=== PATIENT | female | born 1960 | race African-American/Black ===

== ENCOUNTER 2017-02-03 12:13 | Emergency (ER) | payer MEDICAID ==
[~2017-02-03] VITALS: Ht 180.3 cm; Wt 120.2 kg
[~2017-02-03 12:13] MED LIST: DIFLUCAN150 MG PO; FLAGYL500 MG ORAL; GUAIFENESIN-CO118 M1 ORAL; HYDROCODON-ACE1 EA15 ORAL; IBUPROFEN600 MG ORAL; IBUPROFEN600 MG PO; LISINOPRIL20 MG ORAL; NAPROSYN500 M1 ORAL; NORCO 5-325 TA1 EACH ORAL; PREDNISONE20 M1 PO; ZITHROMAX250 MG ORAL
[2017-02-03 12:50] VITALS: BP 137/92
--- NOTE | 2017-02-03 12:59 | Emergency Room Report ---
History of Present Illness General Chief Complaint: Upper Respiratory Illness Source: Patient Present Illness HPI 56 y/o female c/o URI sxs x 8 days. States she has nasal congestion with post nasal drip that is causing cough and chest congestion. States she started having chest pressure / chest wall pain with coughing as well as left shoulder tenderness that is worse with palpation and movement of the left arm and with tenderness pressing on chest wall. Has hx of asthma and states asthma has improved and currently has no chest pressure. States she took flonase w/o improvement of sxs. Denies any active REINOSO, SOB, chest pressure, f/c/n/v/d, abd pain, nausea, neck pain, PRAKASH, blurred vision, jaw pain, back pain, numbness, paralysis or loss of ROM. Allergies: Coded Allergies: No Known Allergies (Unverified , 10/17/13) Patient History Past Medical History: see triage record Past Surgical History: none Pertinent Family History: none Now: No Reviewed Nursing Documentation: PMH: Agreed, PSxH: Agreed Nursing Documentation-PMH Past Medical History: No History, Except For Hx Hypertension: Yes Hx Asthma: Yes Hx COPD: Yes - asthma Review of Systems All Other Systems: negative except mentioned in HPI Physical Exam Vital Signs Date Time Temp Pulse Resp B/P Pulse Ox O2 Delivery O2 Flow Rate FiO2 02/03/17 12:24 98.2 62 16 137/92 95 Room Air Sp02 EP Interpretation: reviewed, normal General Appearance: no apparent distress, alert, GCS 15, non-toxic Head: normocephalic, atraumatic Eyes: bilateral eye PERRL, bilateral eye normal inspection ENT: hearing grossly normal, normal pharynx, no angioedema, normal voice, nasal congestion, other - TM red and bulging Neck: full range of motion, supple/symm/no masses Respiratory: lungs clear, normal breath sounds, no respiratory distress, speaking full sentences, other - TTP left pectoral region and left anterior shoulder Cardiovascular #1: regular rate, rhythm, no edema Musculoskeletal: back normal, gait/station normal, normal range of motion, other - +crossover, neg neers, +empty can, tender Neurologic: alert, oriented x3, responsive, motor strength/tone normal, sensory intact, speech normal Psychiatric: judgement/insight normal, memory normal, mood/affect normal, no suicidal/homicidal ideation Skin: normal color, no rash, warm/dry, well hydrated Lymphatic: no adenopathy Medical Decision Making PA Attestation Dr. Mccord is my supervising physician with whom patient management has been discussed with. Diagnostic Impression: Primary Impression: URI with cough and congestion Additional Impressions: Asthma Qualified Codes: J45.21 - Mild intermittent asthma with (acute) exacerbation Otitis media Qualified Codes: H65.113 - Acute and subacute allergic otitis media (mucoid) ( sanguinous) (serous), bilateral Acute chest wall pain Muscle spasm of left shoulder ER Course Pt. presents to the ED c/o of cough and congestion Ddx considered but are not limited to bronchitis, pneumonia, viral upper respiratory tract infection Vital signs: are WNL, pt. is afebrile H&PE are most consistent with AOM, left shoulder strain, chest wall muscle strain ORDERS: EKG ED INTERVENTIONS: None required at this time. DISCHARGE: At this time pt. is stable for d/c to home. Will provide printed patient care instructions, and any necessary prescriptions. Care plan and follow up instructions have been discussed with the patient prior to discharge. EKG Diagnostic Results Rate: normal Rhythm: NSR ST Segments: no acute changes Last Vital Signs Date Time Temp Pulse Resp B/P Pulse Ox O2 Delivery O2 Flow Rate FiO2 02/03/17 12:50 62 16 Room Air 02/03/17 12:50 98.2 137/92 95 Disposition: HOME, SELF-CARE Condition: Stable Scripts Ibuprofen* (MOTRIN*) 600 Mg Tablet 600 MG ORAL Q6H Y for For Pain, #30 TAB Prov: SABRY,TAMEEM P.A. 02/03/17 Methocarbamol* (ROBAXIN-750*) 750 Mg Tablet 750 MG PO TID, #21 TAB 0 Refills Prov: SABRY,TAMEEM P.A. 02/03/17 D-Methorphan Hb/P-Epd Hcl/Bpm (BROMFED DM COUGH SYRUP) 118 Ml Syrup 5 ML PO TID, #120 ML Prov: SABRY,TAMEEM P.A. 02/03/17 Azithromycin* (ZITHROMAX*) 250 Mg Tablet 250 MG ORAL DAILY for 5 Days, #1 PACK 0 Refills Take two tables once daily for 1 day, then one tablet once daily for 4 days. Prov: SABRY,TAMEEM P.A. 6/4/17 Patient Instructions: Cough, Adult Additional Instructions: Take medication as directed. Drink plenty of fluids which include Gatorade and water. Get plenty of rest. Avoid taking medications on an empty stomach. If you have cough avoid dairy and cold beverages. If you have a fever, headache or body aches please take [id number] tylenol/motrin/advil unless a prescription for these symptoms have been given. If your symptoms are worsening or you have shortness or breath, severe headaches or chest pain, please call 911 or go to the ER. RYANNE RODRIGUEZ Feb 03, 2017 12:59
[2017-02-03] MEDS ORDERED: BROMFED DM COU118 ML PO (13:22)
[2017-02-03] MEDS ORDERED: ZITHROMAX250 MG ORAL (13:22)
[2017-02-03] MEDS ORDERED: ROBAXIN-750750 MG PO (13:26)
[2017-02-03] MEDS ORDERED: IBUPROFEN600 MG ORAL (13:26)
[2017-02-03 13:38] VITALS: BP 137/92
== END 2017-02-03 13:40 | disposition home or self-care (01) ==
LOC: EMR 13:20
DX: R06.9 Unspecified abnormalities of breathing (principal); R05 Cough; R09.81 Nasal congestion; J45.21 Mild intermittent asthma with (acute) exacerbation; H65.113 Acute and subacute allergic otitis media (mucoid) (sanguinous) (serous), bilateral; R07.9 Chest pain, unspecified; M62.838 Other muscle spasm; I10 Essential (primary) hypertension; J44.9 Chronic obstructive pulmonary disease, unspecified
CPT/HCPCS: 93005; 99284

== ENCOUNTER 2017-02-21 14:40 | Emergency (ER) | payer MEDICAID ==
[~2017-02-21] VITALS: Ht 180.3 cm; Wt 117.9 kg
[~2017-02-21 14:40] MED LIST changes: +BROMFED DM COU118 ML PO; +ROBAXIN-750750 MG PO
[2017-02-21 15:17] VITALS: BP 159/91
[2017-02-21] MEDS ORDERED: Ketorolac 60mg Inj IM ONE (15:30)
--- NOTE | 2017-02-21 15:34 | Emergency Room Report ---
History of Present Illness General Chief Complaint: Pain Source: Patient Present Illness HPI 57-year-old female presents emergency department complaining of 7/10 in severity left shoulder pain that she describes as aching and dull x2 months. Patient denies appreciable trauma or fall. Patient states pain is exacerbated upon raising her arm above her head or to brush her hair. Patient denies erythema, increased temperature palpation denies numbness, tingling or changes to sensation. Patient also reports swelling and mild tenderness to the area behind the left ear. Patient states she has had small palpable mass for years. She also reports elevated blood pressure recently due to stress, consistent pain in the shoulder and having to take care of her mother. Denies numbness tingling or loss of sensation or gross motor movements of the extremities, incontinence of bowel or bladder. Denies CP, Palpitations, LOC, AMS, dizziness, Changes in Vision, Sensation, paresthesias, or a sudden severe headache. Allergies: Coded Allergies: No Known Allergies (Unverified , 10/17/13) Patient History Past Medical History: see triage record Past Surgical History: none Pertinent Family History: none Now: No Immunizations: UTD Reviewed Nursing Documentation: PMH: Agreed, PSxH: Agreed Nursing Documentation-PMH Hx Hypertension: Yes Hx Asthma: Yes Hx COPD: Yes - asthma Review of Systems All Other Systems: negative except mentioned in HPI Physical Exam Vital Signs Date Time Temp Pulse Resp B/P Pulse Ox O2 Delivery O2 Flow Rate FiO2 02/21/17 14:54 98.2 61 15 159/91 97 Room Air Sp02 EP Interpretation: reviewed, abnormal - elevated BP General Appearance: no apparent distress, alert, GCS 15, non-toxic Head: normocephalic, atraumatic Eyes: bilateral eye PERRL, bilateral eye normal inspection ENT: hearing grossly normal, normal pharynx, no angioedema, normal voice Neck: full range of motion, supple/symm/no masses Respiratory: lungs clear, normal breath sounds, speaking full sentences Cardiovascular #1: regular rate, rhythm, no edema, normal capillary refill Musculoskeletal: back normal, gait/station normal, normal range of motion, tender - no appreciable TTP, mild discomfort to the left a/c area, FROM of the shoulder with no clicking or crepitus, negative lift off test, 5+ muscular strength. Neurologic: alert, oriented x3, responsive, motor strength/tone normal, sensory intact, speech normal Psychiatric: judgement/insight normal, memory normal, mood/affect normal Skin: normal color, no rash, warm/dry, well hydrated, other - non fluctuant freely mobile well circumscribed superficial dermal mass just posterior to the left ear on the scalp. Medical Decision Making PA Attestation Dr. Levin is my supervising Physician whom patient management has been discussed with. Diagnostic Impression: Primary Impression: PAIN IN LEFT SHOULDER Additional Impression: SEBACEOUS CYST ER Course 57-year-old female presents emergency department complaining of 7/10 in severity left shoulder pain that she describes as aching and dull x2 months. Patient denies appreciable trauma or fall. Patient states pain is exacerbated upon raising her arm above her head or to brush her hair. Patient denies erythema, increased temperature palpation denies numbness, tingling or changes to sensation. Patient also reports swelling and mild tenderness to the area behind the left ear. Patient states she has had small palpable mass for years. She also reports elevated blood pressure recently due to stress, consistent pain in the shoulder and having to take care of her mother. Denies numbness tingling or loss of sensation or gross motor movements of the extremities, incontinence of bowel or bladder. Denies CP, Palpitations, LOC, AMS, dizziness, Changes in Vision, Sensation, paresthesias, or a sudden severe headache. Ddx considered but are not limited to Fracture, dislocation, contusion, Sprain/ Strain/Spasm,sebaceous cyst, abscess. Vital signs: are WNL, pt. is afebrile H&PE are most consistent with Arthritic pain or overuse syndrome will do imaging to evaluate shoulder, epidermal cyst- non fluctuant freely mobile well circumscribed superficial dermal mass. ORDERS: - X-ray Left shoulder 2 views - a/c joint arthritis noted, negative for fx, Dislocation, or significant soft tissue injury, per preliminary read in ED by Dr. Levin ED INTERVENTIONS: - Toradol IM -PT was given a copy of her x-rays. - d/w pt. to follow up for pcp or [employer] for removal of cyst. Follow up with PCP for evaluation of elevated BP. DISCHARGE: At this time pt. is stable for d/c to home. Will provide printed patient care instructions, and any necessary prescriptions. Care plan and follow up instructions have been discussed with the patient prior to discharge. Last Vital Signs Date Time Temp Pulse Resp B/P Pulse Ox O2 Delivery O2 Flow Rate FiO2 02/21/17 15:17 98.2 15 159/91 97 Room Air 02/21/17 14:54 61 Disposition: HOME, SELF-CARE Condition: Stable Scripts Ibuprofen* (MOTRIN*) 600 Mg Tablet 600 MG ORAL THREE TIMES A DAY, #30 TAB 0 Refills Prov: Katherine Salas 02/21/17 Patient Instructions: Epidermal Cyst, Ippi-va-Fupu, Shoulder Pain Additional Instructions: Take medications as directed. Follow up with PCP in 3-5 days, if symptoms persist after conservative treatment MRI is recommended. Return sooner to ED if new symptoms occur, or current symptoms become worse. - Please note that this Emergency Department Report was dictated using MyTinksstemming machine operator technology software, occasionally this can lead to erroneous entry secondary to interpretation by the dictation equipment. Katherine Salas Feb 21, 2017 15:34
--- NOTE | 2017-02-21 16:24 | Diagnostic Imaging Report ---
Indications: Left shoulder pain, denies trauma Technique: 3 views of the left shoulder Findings: Comparison: None No fracture, dislocation, lytic destruction, periosteal reaction, surrounding soft tissue swelling, or other acute change is demonstrated. No deformity, alignment abnormality, arthritic change, soft tissue calcification, or other chronic change is demonstrated. IMPRESSION: Negative left shoulder series.
[2017-02-21] MEDS ORDERED: IBUPROFEN600 MG ORAL (16:32)
[2017-02-21 16:40] VITALS: BP 157/94
== END 2017-02-21 16:40 | disposition home or self-care (01) ==
LOC: EMR 15:55
DX: M25.512 Pain in left shoulder (principal); L72.3 Sebaceous cyst; J44.9 Chronic obstructive pulmonary disease, unspecified; I10 Essential (primary) hypertension
CPT/HCPCS: 96372; 99283

== ENCOUNTER 2017-06-02 17:21 | Emergency (ER) | payer MEDICAID ==
[~2017-06-02] VITALS: Ht 180.3 cm; Wt 115.7 kg
[2017-06-02 17:40] VITALS: BP 157/93
--- NOTE | 2017-06-02 18:51 | Emergency Room Report ---
History of Present Illness General Chief Complaint: Female Urogenital Problems Source: Patient Present Illness HPI 57-year-old female presents to emergency department complaining of dysuria and vaginal itching with swelling and sensitivity x2 days. Patient denies appreciable discharge she states she tried ofat-mmn-sytyxmb yeast cream and believes that this made her symptoms worse. Patient denies malodor. Patient denies recent unprotected intercourse with a new partner. She denies fevers, chills, vaginal bleeding, swollen tender lymph nodes, joint pain or abdominal pain. Patient denies nausea vomiting. She denies hematuria or frequency. She reports that she is in the beginning of menopause. Allergies: Coded Allergies: No Known Allergies (Unverified , 10/17/13) Patient History Past Medical History: see triage record Past Surgical History: none Pertinent Family History: none Last Menstrual Period: irreg Now: No Immunizations: UTD Reviewed Nursing Documentation: PMH: Agreed, PSxH: Agreed Nursing Documentation-PMH Hx Hypertension: Yes Hx Asthma: Yes Hx COPD: Yes Review of Systems All Other Systems: negative except mentioned in HPI Physical Exam Vital Signs Date Time Temp Pulse Resp B/P (MAP) Pulse Ox O2 Delivery O2 Flow Rate FiO2 06/02/17 17:31 97.9 66 20 157/93 97 Room Air Sp02 EP Interpretation: reviewed, normal General Appearance: no apparent distress, alert, GCS 15, non-toxic Head: normocephalic, atraumatic Eyes: bilateral eye normal inspection, bilateral eye PERRL ENT: hearing grossly normal, normal voice Neck: full range of motion Respiratory: lungs clear, normal breath sounds, speaking full sentences Cardiovascular #1: regular rate, rhythm Gastrointestinal: normal bowel sounds, non tender, soft, no guarding, no rebound Rectal: deferred Genitourinary: normal inspection, no CVA tenderness, adnexa normal, bladder normal, cervix normal, other - no CMT, scant Thick white D/C noted Musculoskeletal: back normal, gait/station normal, normal range of motion, non- tender, no calf tenderness Neurologic: alert, oriented x3, responsive, motor strength/tone normal, sensory intact, speech normal Psychiatric: judgement/insight normal, memory normal, mood/affect normal Skin: normal color, no rash, warm/dry, well hydrated Lymphatic: no adenopathy Medical Decision Making PA Attestation Dr. Pagan is my supervising Physician whom patient management has been discussed with. Diagnostic Impression: Primary Impression: Vaginitis Qualified Codes: N76.0 - Acute vaginitis Additional Impression: UTI (urinary tract infection) Qualified Codes: N30.01 - Acute cystitis with hematuria ER Course 57-year-old female presents to emergency department complaining of dysuria and vaginal itching with swelling and sensitivity x2 days. Patient denies appreciable discharge she states she tried zirw-usu-epwnpdq yeast cream and believes that this made her symptoms worse. Patient denies malodor. Patient denies recent unprotected intercourse with a new partner. She denies fevers, chills, vaginal bleeding, swollen tender lymph nodes, joint pain or abdominal pain. Patient denies nausea vomiting. She denies hematuria or frequency. She reports that she is in the beginning of menopause. Ddx considered but are not limited to UTi , Pyelo, STI, Stone, Cystitis, vaginal laceration, vaginitis. Vital signs: are WNL, pt. is afebrile H& PE are most consistent with: Vaginitis will do wet mount to differentiate between atrophic, yeast, or BV ORDERS: - UA labs are attached - WBC's, leuks, and bacteria elevated, consistent with UTI. -Wet Mount Prep: No Clue cells, no trich, bacteria, no yeast. ED INTERVENTIONS: -Diflucan PO DISCHARGE: At this time pt. is stable for d/c to home. Will provide printed patient care instructions, and any necessary prescriptions. Care plan and follow up instructions have been discussed with the patient prior to discharge. Labs Test 06/02/17 20:00 Urine Color Ibeth Urine Appearance Slightly cloudy Urine pH 5 (4.5-8.0) Urine Specific [place] 1.025 (1.005-1.035) Urine Protein 1+ (NEGATIVE) Urine Glucose (UA) Negative (NEGATIVE) Urine Ketones 1+ (NEGATIVE) Urine Occult Blood 1+ (NEGATIVE) Urine Nitrite Negative (NEGATIVE) Urine Bilirubin Negative (NEGATIVE) Urine Ictotest Negative Urine Urobilinogen Normal MG/DL (0.0-1.0) Urine Leukocyte Esterase 3+ (NEGATIVE) Urine RBC 0-2 /HPF (0 - 2) Urine WBC 15-20 /HPF (0 - 2) Urine Squamous Epithelial Cells Many /LPF (NONE/OCC) Urine Bacteria Moderate /HPF (NONE) Urine Mucus Few /LPF (NONE/OCC) Last Vital Signs Date Time Temp Pulse Resp B/P (MAP) Pulse Ox O2 Delivery O2 Flow Rate FiO2 06/02/17 17:31 97.9 66 20 157/93 97 Room Air Disposition: HOME, SELF-CARE Condition: Stable Scripts Nitrofurantoin Monohyd/M-Cryst* (MACROBID 100 MG*) 100 Mg Capsule 100 MG ORAL EVERY 12 HOURS for 5 Days, #10 CAP Prov: Katherine Salas 06/02/17 Fluconazole (FLUCONAZOLE) 100 Mg Tablet 100 MG ORAL DAILY for 3 Days, #3 TAB 0 Refills Prov: Katherine Salas 06/02/17 Referrals: [facility] (PCP) Patient Instructions: Vaginitis Additional Instructions: Take medications as directed. Follow up with a Primary Care Provider in 3-5 days, even if your symptoms have resolved. --Please review list of primary care clinics, if you do not already have a primary care provider Return sooner to ED if new symptoms occur, or current symptoms become worse. - Please note that this Emergency Department Report was dictated using echoechofarm management teacher technology software, occasionally this can lead to erroneous entry secondary to interpretation by the dictation equipment. Katherine Salas Jun 02, 2017 18:51
[2017-06-02] MEDS ORDERED: Fluconazole 100mg tab ORAL ONE (19:45)
[2017-06-02] MEDS ORDERED: FLUCONAZOLE100 MG ORAL (19:59)
[2017-06-02 20:09] LABS: APPEARANCE,URINE SLIGHTLY CLOUDY; KETONES,URINE 1+ (NEGATIVE); LEUKOCYTE ESTERASE ,URINE 3+ (NEGATIVE); NITRITE,URINE NEGATIVE (NEGATIVE); PH,URINE 5 (4.5-8.0); PROTEIN,URINE 1+ (NEGATIVE); UROBILINOGEN,URINE NORMAL MG/DL (0.0-1.0)
[2017-06-02 20:17] LABS: BACTERIA,URINE MODERATE /HPF; ICTOTEST NEGATIVE; MUCUS,URINE FEW /LPF (NONE/OCC); RBC,URINE 0-2 /HPF (0 - 2); SQUAMOUS EPITHELIAL CELL,UR MANY /LPF (NONE/OCC); WBC,URINE 15-20 /HPF (0 - 2)
[2017-06-02 20:21] VITALS: BP 157/93
[2017-06-02] MEDS ORDERED: NITROFURANTOIN100 M2 ORAL (20:25)
== END 2017-06-02 20:21 | disposition home or self-care (01) ==
LOC: EMR 18:19
DX: N76.0 Acute vaginitis (principal); N39.0 Urinary tract infection, site not specified; J44.9 Chronic obstructive pulmonary disease, unspecified; I10 Essential (primary) hypertension
CPT/HCPCS: 81003; 87086; 87210; 99284

== ENCOUNTER 2017-08-18 15:16 | Emergency (ER) | payer MEDICAID ==
[~2017-08-18] VITALS: Ht 180.3 cm; Wt 120.2 kg
[~2017-08-18 15:16] MED LIST changes: +FLUCONAZOLE100 MG ORAL; +NITROFURANTOIN100 M2 ORAL
[2017-08-18] MEDS ORDERED: PROMETHAZINE-D118 ML ORAL (17:00)
[2017-08-18] MEDS ORDERED: PROAIR HFA8.5 GM INH (17:00)
[2017-08-18] MEDS ORDERED: ZITHROMAX250 MG ORAL (17:00)
[2017-08-18 17:07] VITALS: BP 158/82
[2017-08-18 17:20] VITALS: BP 158/82
--- NOTE | 2017-08-18 21:17 | Emergency Room Report ---
History of Present Illness General Chief Complaint: Upper Respiratory Illness Source: Patient (SD MATTHEWS) Present Illness HPI The patient is a 57-year-old female presenting for cough, subjective fevers, chills for the past 3 days. She states that symptoms have been worsening. She states that she has had pneumonia in the past and this feels the same. Pain is an 8/10 dull ache to the mid chest and occurs with coughing only. She denies any other symptoms including shortness of breath, rash, dizziness, blurred vision, sore throat (SD MATTHEWS P.A.) Allergies: Coded Allergies: No Known Allergies (Unverified , 10/17/13) Patient History Past Medical History: see triage record Reviewed Nursing Documentation: PMH: Agreed, PSxH: Agreed (SD [email or web address]) Nursing Documentation-PMH Hx Hypertension: Yes Hx Asthma: Yes Hx COPD: Yes (SD [email or web address]) Review of Systems All Other Systems: negative except mentioned in HPI (SD MATTHEWS P.ARosario) Physical Exam Vital Signs Date Time Temp Pulse Resp B/P (MAP) Pulse Ox O2 Delivery O2 Flow Rate FiO2 08/18/17 15:50 98.2 81 16 154/88 97 Room Air Sp02 EP Interpretation: reviewed, normal General Appearance: no apparent distress, alert, GCS 15, non-toxic Head: normocephalic, atraumatic Eyes: bilateral eye normal inspection, bilateral eye PERRL ENT: hearing grossly normal, normal pharynx, no angioedema, normal voice, uvula midline Neck: full range of motion, supple/symm/no masses Respiratory: chest non-tender, normal breath sounds, speaking full sentences, wheezing - bilat lower lobes Cardiovascular #1: regular rate, rhythm, no edema Musculoskeletal: back normal, gait/station normal, normal range of motion, non- tender Neurologic: alert, oriented x3, responsive, motor strength/tone normal, sensory intact, speech normal Psychiatric: judgement/insight normal, memory normal, mood/affect normal, no suicidal/homicidal ideation Skin: normal color, no rash, warm/dry, well hydrated Lymphatic: no adenopathy (SD [email or web address]) Medical Decision Making PA Attestation Dr. Pagan is my supervising physician. Patient management was discussed with my supervising physician (SD MATTHEWS) Diagnostic Impression: Primary Impression: Atypical pneumonia ER Course The patient is a 57-year-old female presenting for cough, subjective fevers, chills for the past 3 days. Differential diagnosis include but not limited to pharyngitis, sinusitis, AOM, bronchitis, PNA PE: afebrile. No tachypnea. No apparent distress. No TTP over maxillary or frontal sinuses. Lungs: bilat wheezing. No accessory muscle use. No resp distress Heart: RRR, no abnormal heart sounds Ears: external auditory canal clear. Non erythematous. Bilat TM intact. Cone of light present bilat. No bulging of TM. No serous fluid seen. no nasal D/C Nor cervical lymphad No tonsillar exudate. Uvula midline.Oropharynx non erythematous CXR shows no effusion or acute findings The patient will be discharged home with a prescription for abx, albuterol. and cough medication ER precautions given (SD MATTHEWS) ER Course I have reviewed the PA's interpretation of Xray results and agree with findings. (Leola Pagan M.D.) Chest X-Ray Diagnostic Results Chest X-Ray Diagnostic Results : Chest X-Ray Ordered: Yes # of Views/Limited/Complete: 1 View Indication: Other - cough PA Xray: Interpretation reviewed, by supervising MD, and agrees with findings. Interpretation: no consolidation, no effusion, no pneumothorax, no acute cardiopulmonary disease Impression: No acute disease Electronically Signed by: Sd Matthews PA-C (SD MATTHEWS PRosarioARosario) Last Vital Signs Date Time Temp Pulse Resp B/P (MAP) Pulse Ox O2 Delivery O2 Flow Rate FiO2 08/18/17 17:20 71 20 158/82 97 Room Air 08/18/17 17:07 97.8 Status: improved (SD MATTHEWS) Disposition: HOME, SELF-CARE Condition: Improved Scripts D-Methorphan Hb/Prometh Hcl* (PROMETHAZINE-DM SYRUP*) 118 Ml Syrup 5 ML ORAL Q6H Y for For Cough, #118 ML 0 Refills Prov: SD MATTHEWS 08/18/17 Albuterol Sulfate* (PROAIR HFA*) 8.5 Gm Hfa.aer.ad 2 PUFFS INH Q6H, #8.5 GM 0 Refills Prov: SD MATTHEWS 08/18/17 Azithromycin* (ZITHROMAX*) 250 Mg Tablet 250 MG ORAL DAILY, #6 TAB 0 Refills Take two tables once daily for 1 day, then one tablet once daily for 4 days. Prov: SD MATTHEWS 08/18/17 Referrals: [facility] (PCP) Patient Instructions: Cough, Adult Additional Instructions: I discussed my findings with the patient. All questions and concerns have been answered. Treatment and medication compliance have been addressed. I advised the patient that they need to follow up with PMD in 3-5 days. Return to ED if symptoms worsen, new symptoms arise, or if needed for any reason. Patient verbalized understanding of discharge instructions. SD MATTHEWS Aug 18, 2017 21:17 Leola Pagan M.D. Aug 19, 2017 13:54
--- NOTE | 2017-08-19 12:58 | Diagnostic Imaging Report ---
Indication: Cough Comparison: 12/21/2013 A single view chest radiograph was obtained. Findings: Cardiomediastinal appearance is within normal limits for age. Pulmonary vascularity is appropriate. The diaphragmatic contour is smooth and costophrenic angles are sharp. No pleural effusions are identified. The bones are unremarkable. Impression: No acute findings
== END 2017-08-18 17:20 | disposition home or self-care (01) ==
LOC: EMR 15:45
DX: J18.9 Pneumonia, unspecified organism (principal); I10 Essential (primary) hypertension; J44.9 Chronic obstructive pulmonary disease, unspecified
CPT/HCPCS: 71010; 99284

== ENCOUNTER 2017-10-17 17:31 | Emergency (ER) | payer MEDICAID ==
[~2017-10-17] VITALS: Ht 180.3 cm; Wt 113.4 kg
[~2017-10-17 17:31] MED LIST changes: +PROAIR HFA8.5 GM INH; +PROMETHAZINE-D118 ML ORAL
[2017-10-17 18:32] LABS: APPEARANCE,URINE CLEAR; BILIRUBIN, URINE NEGATIVE (NEGATIVE); GLUCOSE, URINE (UA) NEGATIVE (NEGATIVE); KETONES,URINE NEGATIVE (NEGATIVE); LEUKOCYTE ESTERASE ,URINE 1+ (NEGATIVE); NITRITE,URINE NEGATIVE (NEGATIVE); PH,URINE 5 (4.5-8.0); PROTEIN,URINE NEGATIVE (NEGATIVE); UROBILINOGEN,URINE NORMAL MG/DL (0.0-1.0)
[2017-10-17 18:33] LABS: COLOR,URINE YELLOW
[2017-10-17] MEDS ORDERED: Ketorolac 60mg Inj IM ONE (18:45)
--- NOTE | 2017-10-17 19:08 | Emergency Room Report ---
History of Present Illness General Chief Complaint: Back Pain-No Injury Source: Patient Present Illness HPI 57-year-old female presents to the emergency department complaining of 10 out of 10 in severity low back pain primarily on the right side x2 days. Patient reports difficulty finding comfortable position at night pain is increased upon movement or getting up from bed. Patient states that she bought a new bed and mattress and was having to move those around the room and states that she may have pulled something. Describes pain as constant and dull with intermittent exacerbations with certain movements. Patient also reports increase urinary frequency as she was having to get up multiple times but tonight to go to the bathroom. Patient denies dysuria, hematuria, fevers, chills. Patient denies history of back pain or recent trauma or fall. Denies night sweats, hx of cx or recent spinal procedures. Denies numbness tingling or loss of sensation or gross motor movements of the extremities, incontinence of bowel or bladder. Denies CP, Palpitations, LOC, AMS, dizziness, Changes in Vision, Sensation, paresthesias, or a sudden severe headache. Allergies: Coded Allergies: No Known Allergies (Unverified , 10/17/13) Patient History Past Medical History: see triage record Past Surgical History: none Pertinent Family History: none Now: No Reviewed Nursing Documentation: PMH: Agreed, PSxH: Agreed Nursing Documentation-PMH Past Medical History: No History, Except For Hx Cardiac Problems: No Hx Hypertension: Yes Hx Pacemaker: No Hx Asthma: Yes Hx COPD: No Hx Diabetes: No Hx Cancer: No Hx Gastrointestinal Problems: No Hx Dialysis: No History Of Psychiatric Problem: No Hx Neurological Problems: No Hx Cerebrovascular Accident: No Hx Seizures: No Review of Systems All Other Systems: negative except mentioned in HPI Physical Exam Vital Signs Date Time Temp Pulse Resp B/P (MAP) Pulse Ox O2 Delivery O2 Flow Rate FiO2 10/17/17 17:43 98.1 65 14 174/72 99 Room Air 98.1 Sp02 EP Interpretation: reviewed, normal General Appearance: no apparent distress, alert, GCS 15, non-toxic Head: normocephalic, atraumatic Eyes: bilateral eye normal inspection, bilateral eye PERRL ENT: hearing grossly normal, normal voice Neck: full range of motion Respiratory: lungs clear, normal breath sounds, speaking full sentences Cardiovascular #1: regular rate, rhythm Gastrointestinal: non tender, soft, no guarding Rectal: deferred Genitourinary: normal inspection, no CVA tenderness Musculoskeletal: back normal, gait/station normal, normal range of motion, tender - Right lumbar paraspinal and upper gluteal ttp, mild left paraspinal lumbar ttp, FROM, no midline ttp, no obvious deformities. Neurologic: alert, oriented x3, responsive, motor strength/tone normal, sensory intact, normal gait, speech normal, grossly normal Psychiatric: judgement/insight normal Skin: normal color, no rash, warm/dry, well hydrated Medical Decision Making PA Attestation Dr. Pagan is my supervising Physician whom patient management has been discussed with. Diagnostic Impression: Primary Impression: Muscle spasm of back Additional Impression: Lumbosacral strain Qualified Codes: S39.012A - Strain of muscle, fascia and tendon of lower back , initial encounter ER Course 57-year-old female presents to the emergency department complaining of 10 out of 10 in severity low back pain primarily on the right side x2 days. Patient reports difficulty finding comfortable position at night pain is increased upon movement or getting up from bed. Patient states that she bought a new bed and mattress and was having to move those around the room and states that she may have pulled something. Describes pain as constant and dull with intermittent exacerbations with certain movements. Patient also reports increase urinary frequency as she was having to get up multiple times but tonight to go to the bathroom. Patient denies dysuria, hematuria, fevers, chills. Patient denies history of back pain or recent trauma or fall. Denies night sweats, hx of cx or recent spinal procedures. Denies numbness tingling or loss of sensation or gross motor movements of the extremities, incontinence of bowel or bladder. Denies CP, Palpitations, LOC, AMS, dizziness, Changes in Vision, Sensation, paresthesias, or a sudden severe headache. Ddx considered but are not limited to Fracture, dislocation, contusion, epidural abscess, Sprain/Strain/Spasm, UTI , pyelo, stone just to name a few. Vital signs: are WNL, pt. is afebrile H&PE are most consistent with muscle spasm, ORDERS: -UA: Unremarkable-- Most indicative of contamination: presence of equal amounts of bacteria and squamous cells, no elevation in inflammatory markers, nitrite negative. ED INTERVENTIONS: -Toradol IM d/w pt. conservative treatment, and to follow up with a primary care provider. pt given a list of primary care clinics for follow up. d/w pt. to return to the ED with worsening or new symptoms. DISCHARGE: At this time pt. is stable for d/c to home. Will provide printed patient care instructions, and any necessary prescriptions. Care plan and follow up instructions have been discussed with the patient prior to discharge. Labs Test 10/17/17 18:00 Urine Color Yellow Urine Appearance Clear Urine pH 5 (4.5-8.0) Urine Specific [place] 1.025 (1.005-1.035) Urine Protein Negative (NEGATIVE) Urine Glucose (UA) Negative (NEGATIVE) Urine Ketones Negative (NEGATIVE) Urine Occult Blood 1+ (NEGATIVE) Urine Nitrite Negative (NEGATIVE) Urine Bilirubin Negative (NEGATIVE) Urine Urobilinogen Normal MG/DL (0.0-1.0) Urine Leukocyte Esterase 1+ (NEGATIVE) Urine RBC 0-2 /HPF (0 - 2) Urine WBC 2-4 /HPF (0 - 2) Urine Squamous Epithelial Cells Moderate /LPF (NONE/OCC) Urine Bacteria Few /HPF (NONE) Last Vital Signs Date Time Temp Pulse Resp B/P (MAP) Pulse Ox O2 Delivery O2 Flow Rate FiO2 10/17/17 18:51 98.1 10/17/17 17:43 65 14 174/72 99 Room Air Disposition: HOME, SELF-CARE Condition: Stable Scripts Lidocaine (Lidoderm) 1 Each Adh..patch 1 PATCH TOPIC DAILY, #25 PATCH 0 Refills Patch(es) may remain in place for up to 12 hours in any 24-hour period. Prov: Katherine Salas P.A. 10/17/17 Carisoprodol* (SOMA*) 350 Mg Tablet 350 MG PO QHS, #1 TAB Prov: Katherine Salas P.A. 10/17/17 Methocarbamol* (ROBAXIN*) 500 Mg Tablet 1000 MG PO TID, #42 TAB 0 Refills Prov: Katherine Salas P.A. 10/17/17 Referrals: NON PHYSICIAN (PCP) Patient Instructions: Lumbosacral Strain, Muscle Cramps and Spasms, Easy-to- Read Additional Instructions: Take medications as directed. Take 1 "Soma/carisoprodol" tonight at bedtime. Then start taking "Robaxin /methocarbamol" for maintenance starting tomorrow, do not take both medications at the same time. Follow up with a Primary Care Provider in 3-5 days, even if your symptoms have resolved. --Please review list of primary care clinics, if you do not already have a primary care provider Return sooner to ED if new symptoms occur, or current symptoms become worse. Do not drink alcohol, drive, or operate heavy machinery while taking Muscle Relaxer as this may cause drowsiness. - Please note that this Emergency Department Report was dictated using [employer] technology software, occasionally this can lead to erroneous entry secondary to interpretation by the dictation equipment. Katherine Salas Oct 17, 2017 19:07
[2017-10-17] MEDS ORDERED: LIDODERM700 M1 TOPIC (19:09)
[2017-10-17] MEDS ORDERED: SOMA350 MG PO (19:09)
[2017-10-17] MEDS ORDERED: ROBAXIN500 MG PO (19:09)
[2017-10-17 19:16] VITALS: BP 168/70
[2017-10-17 19:19] VITALS: BP 168/70
== END 2017-10-17 19:21 | disposition home or self-care (01) ==
LOC: EMR 18:00
DX: S39.012A Strain of muscle, fascia and tendon of lower back, initial encounter (principal); X50.0XXA Overexertion from strenuous movement or load, initial encounter; Y92.009 Unspecified place in unspecified non-institutional (private) residence as the place of occurrence of the external cause; I10 Essential (primary) hypertension; J45.909 Unspecified asthma, uncomplicated
CPT/HCPCS: 81003; 96372; 99283